=== PATIENT | male | born 1965 | race Caucasian/White ===

== ENCOUNTER 2017-07-10 10:04 | Emergency (ER) | payer OTHER ==
[~2017-07-10] VITALS: Ht 177.8 cm; Wt 95.3 kg
[2017-07-10] MEDS ORDERED: BUPR300T52 PO (10:16)
[2017-07-10] MEDS ORDERED: PROCHLORPERAZINE EDISYLATE 10 MG/2 ML VIAL IV ONE (10:45)
[2017-07-10] MEDS ORDERED: IV NORMAL SALINE 1000 ML BAG IV ONE (10:45)
[2017-07-10] MEDS ORDERED: PROCHLORPERAZINE EDISYLATE 10 MG/2 ML VIAL ONE (11:04)
[2017-07-10] MEDS ORDERED: PROCHLORPERAZINE EDISYLATE 10 MG/2 ML VIAL IM ONE (11:15)
--- NOTE | 2017-07-10 11:26 | NUR ---
PATIENT WAS SEEN BY DR TATUM FOR C/O HEADACHE AND NAUSEA. IV ACCESS WAS NOT POSSIBLE DUE TO MOST VEINS NOT BEING VISIBLE OR PALPABLE. I WAS ABLE TO OBTAIN BLOOD SAMPLES FOR LABS FROM ONE SMALL VEIN BUT THE VEIN BLEW SOON I FLUSHED IT. DR TATUM NOTIFIED. MED CHANGED TO IM.
[2017-07-10 11:27] LABS: BASOPHILS # (AUTO) 0.1 K/uL (0.0-8.0); BASOPHILS % (AUTO) 0.7 % (0.0-2.0); EOSINOPHILS # (AUTO) 0.1 K/uL (0.0-0.7); EOSINOPHILS % (AUTO) 0.9 % (0.0-7.0); HEMATOCRIT 43.5 % (36.7-47.1); LYMPHOCYTES # (AUTO) 0.6 K/uL (20.0-40.0); LYMPHOCYTES % (AUTO) 7.7 % (20.5-51.5); MEAN CORPUSCULAR HEMOGLOBIN 28.5 uug (23.8-33.4); MEAN CORPUSCULAR HGB CONC 34 g/dL (32.5-36.3); MEAN CORPUSCULAR VOLUME 82.9 fL (73.0-96.2); MONOCYTES # (AUTO) 0.8 K/uL (2.0-10.0); MONOCYTES % (AUTO) 10.6 % (0.0-11.0); NEUTROPHILS # (AUTO) 5.9 K/uL (1.8-8.9); NEUTROPHILS % (AUTO) 80.1 % (38.5-71.5); PLATELET COUNT (AUTO) 248 K/uL (152-348); RED BLOOD CELL COUNT(AUTO) 5.25 MIL/uL (4.06-5.63); WHITE BLOOD COUNT (AUTO) 7.4 K/uL (3.6-10.2)
[2017-07-10 11:35] LABS: CREATININE 1.1 mg/dL (0.6-1.3); POTASSIUM 4.3 mmol/L (3.5-5.1)
[2017-07-10] MEDS ORDERED: HYDROMORPHONE 1 MG/1 ML DISP.SYRIN IM ONE (12:00)
--- NOTE | 2017-07-10 12:02 | NUR ---
PATIENT STATES PAIN HAS NOT DIMINISHED AT ALL. DR TATUM AWARE. DILAUDID GIVEN IM ORDERED
[2017-07-10] MEDS ORDERED: HYDROMORPHONE 2 MG/1 ML DISP.SYRIN ONE (12:14)
[2017-07-10] MEDS ORDERED: CEFTRIAXONE 1 G VIAL IM ONE (13:30)
[2017-07-10] MEDS ORDERED: CEFTRIAXONE 1 G in IV DEXTROSE 5% 50 ML IV ONE (13:30)
[2017-07-10] MEDS ORDERED: DEXAMETHASONE SOD PHOSPHATE 4 MG INJ IV ONE (13:30)
[2017-07-10] MEDS ORDERED: methylPREDNISolone ACETATE 40 MG VIAL IM ONE (13:30)
[2017-07-10] MEDS ORDERED: methylPREDNISolone ACETATE 40 MG VIAL ONE (13:41)
[2017-07-10] MEDS ORDERED: CEFTRIAXONE 1 G VIAL ONE (13:41)
--- NOTE | 2017-07-10 13:41 | NUR ---
PATEINT STATES PAIN HAS DIMINISHED SIGNIFICANTLY. DC, RX (INCLUDING DRIVING AND ALL OTHER PRECAUTIONS) AND FOLLOW UP INSTRUCTIONS GIVEN AND EXPLAINED TO PATIENT AND WHO STATE THEY UNDERSTANDS ALL INSTRUCTIONS. TO DRIVE.
[2017-07-10 13:47] VITALS: BP 131/75
== END 2017-07-10 13:50 | disposition home or self-care (01) ==
LOC: ER 10:04
DX: J01.10 Acute frontal sinusitis, unspecified (principal); R51 Headache
CPT/HCPCS: 36415; 70030-TC; 70450; 71010; 85025; 85651; 85730; 87040; 93005; A4663; J0696; J0780; J1030; J1170; J7030